=== PATIENT | male | born 1935 | race Caucasian/White ===

== ENCOUNTER → 2017-04-23 | Outpatient (CLI) | payer OTHER ==
[~2017-04-23] MED LIST: ACTOS45 MG PO; ADVAIR HFA120 INHALA IH; ALBUTEROL2.5 MG/3 M IH; AMARYL1 MG PO; AMLODIPINE BESY10 MG PO; ASPIRIN81 M2 PO; ATENOLOL100 MG PO; BUMETANIDE1 MG PO; CRESTOR10 MG PO; CYANOCOBAL1000 MCG/2 IM; DUONEB 2.5-0.5 M3 ML AEROSOL; ELIQUIS5 MG PO; FEROSUL325 MG PO; FISH OIL 1,0001 EAC7 PO; FUROSEMIDE40 MG PO; GOLD BOND ULT D96 GM TP; HYTRIN5 MG PO; INCRUSE ELLI62.5 MCG IH; KLOR-CON M2020 MEQ PO; LANTUS 3 M100 UNITS1 SC; LASIX20 MG PO; LASIX40 MG PO; LISINOPRIL40 MG PO; LOPRESSOR100 M1 PO; LOPRESSOR50 MG PO; METFORMIN HCL1000 MG PO; METOPROLOL TAR100 MG PO; METOPROLOL TART25 MG PO; MIRALAX17 GM PO; MIRALAX255 GM PO; NORCO 5/3251 TABLET PO; OMEPRAZOLE20 MG PO; PIOGLITAZONE HC45 MG PO; POTASSIUM CHLO20 ME1 PO; PROAIR HFA8.5 GM IH; PROSCAR5 MG PO; PROTONIX IV40 MG IV; PROTONIX40 MG PO; SPIRIVA RESPIMAT4 G1 IH; SPIRIVA RESPIMAT4 GM IH; SPIRIVA1 INHALATI IH; SPIRONOLACTONE25 MG PO; ST. JOSEPH ASPI81 MG PO; TAMSULOSIN HCL0.4 MG PO; TERAZOSIN HCL5 MG PO; TYLENOL EXTRA500 MG PO; VITAMIN B125000 MCG PO; VITAMIN D22000 UNIT PO; ZESTRIL2.5 MG PO; ZYLOPRIM100 MG PO
== END | disposition home or self-care (01) ==
LOC: AMB 08:47
PROC: 0HB1XZZ Excision of Face Skin, External Approach (ICD-10-PCS; principal; 2017-04-23)
DX: C44.319 Basal cell carcinoma of skin of other parts of face (principal)
CPT/HCPCS: 88305